=== PATIENT | female | born 1945 | race African-American/Black ===

== ENCOUNTER 2021-08-03 14:31 | Emergency (ER) | payer MEDICARE, OTHER ==
[~2021-08-03] VITALS: Ht 160 cm; Wt 45.4 kg
[~2021-08-03 14:31] MED LIST: ALBU1.257 NEB; AMLO10TA4 PO; FLUT1DIS3 INH; HYDR-4384 PO; LEVO100T9 PO; LISI40TA13 PO; LORA-259 PO; MONT10TA22 PO; MUPI1OIN BNOSTRILS; NEBU1KIT3 MC; PRED20TA PO; TIOT18CA3 INH
--- NOTE | 2021-08-03 14:34 | NUR ---
FARA SIMMONS FROM [facility], C/O LEFT BREAST "LUMP" AND PAIN X 6 MONTHS. TO ER BED 7, HOOKED TO MONITOR, CHANGED TO HOSP GOWN, WARM BLANKET PROVIDED. PATIENT AAO x 3, AWAITING MD DEVRIES.
--- NOTE | 2021-08-03 14:54 | NUR ---
DR METZ AT BEDSIDE
[2021-08-03 15:32] LABS: BASOPHILS # (AUTO) 0.1 K/uL (0.0-0.2); BASOPHILS % (AUTO) 0.7 % (0.0-2.0); EOSINOPHILS % (AUTO) 10.2 % (0.0-6.0); HEMATOCRIT 32 % (33-45); HEMOGLOBIN 10.5 g/dL (11.5-14.8); LYMPHOCYTES % (AUTO) 23.9 % (20.0-44.0); MEAN CORPUSCULAR HGB CONC 33 g/dl (31.0-36.0); MEAN CORPUSCULAR VOLUME 87 fL (82-100); MONOCYTES % (AUTO) 12.1 % (2.0-12.0); NEUTROPHILS # (AUTO) 4.5 K/uL (1.8-8.9); NEUTROPHILS % (AUTO) 53.1 % (43.0-81.0); PLATELET COUNT (AUTO) 267 K/uL (150-450); RED BLOOD CELL COUNT(AUTO) 3.67 MIL/uL (4.0-5.2); WHITE BLOOD COUNT (AUTO) 8.5 K/uL (4.3-11.0)
[2021-08-03 15:54] LABS: CALCIUM, SERUM 9.2 mg/dL (8.5-10.1); CREATININE 0.6 mg/dL (0.6-1.3)
[2021-08-03] MEDS ORDERED: IOHEXOL-300 100 ML VIAL IV ONE (16:43)
[2021-08-03] MEDS ORDERED: IV NS 0.9% 250 ML IV ONE (16:44)
--- NOTE | 2021-08-03 17:32 | NUR ---
CALLED [facility] FOR S TRANSPORT ETA [phone]
--- NOTE | 2021-08-03 19:00 | NUR ---
PATIENT PICKED UP BY [facility] [id number] IN STABLE CONDITION. PATIENT WILL BE BROUGHT BACK TO [facility].
[2021-08-03 19:01] VITALS: BP 132/69
[2021-08-04 06:18] LABS: CANCER AG, 125 14.8 U/mL (0.0-38.1); CANCER AG, 15-3 37.4 U/mL (0.0-25.0)
== END 2021-08-03 19:01 ==
LOC: ER 14:37
DX: N63.0 Unspecified lump in unspecified breast (principal); I10 Essential (primary) hypertension; E03.9 Hypothyroidism, unspecified; Z79.899 Other long term (current) drug therapy
CPT/HCPCS: 36415; 76642; 80048; 82378; 85025; 85652; 85730; 86140; 86300 ×2; 86304; 99284; J7050; Q9967